=== PATIENT | female | born 1990 | race Hispanic/Latino ===

== ENCOUNTER 2017-10-12 00:17 | Emergency (ER) | payer BC ==
[2017-10-12] MEDS ORDERED: ONDANSETRON 4 MG/2 ML VIAL ONE (01:12)
[2017-10-12] MEDS ORDERED: NA CHLORIDE 0.9% 1,000 ML ONE (01:13)
[2017-10-12 01:23] LABS: Absolute Lymphocytes (CBC) 1.5 K/uL (0.7-4.9); Absolute Monocytes 0.8 K/uL (0.1-1.3); Absolute Neutrophil 9.2 K/uL (1.8-8.0); Basophils % 0.1 % (0-1.3); Eosinophils % 0.1 % (0-4.4); Hematocrit 37.2 % (36.0-45.0); Lymphocytes % 12.9 % (15.3-44.8); MCH 29.7 pg (27.0-35.0); MCV 89.1 fL (80-100); MPV 10.5 fL (7.6-11.3); Monocytes % 7.2 % (3.3-12.3); RBC Red Blood Cell Count 4.17 M/uL (3.86-4.86)
[2017-10-12 01:39] LABS: Bicarbonate 26 mEq/L (21-31); Glucose Level 127 mg/dL (65-120); Lipase 20 U/L (22-51); Potassium 3.4 mEq/L (3.6-5.0); Sodium Level 134 mEq/L (135-145)
[2017-10-12 01:45] LABS: ALT/SGPT 24 IU/L (10-60); AST/SGOT 23 IU/L (10-42); Albumin 3.9 g/dL (3.2-5.5); Alkaline Phosphatase 64 IU/L (42-121); BUN Blood Urea Nitrogen 12 mg/dL (6-20); Bilirubin Direct < 0.1 mg/dL (0-0.2); Bilirubin Total 0.5 mg/dL (0.3-1.2)
[2017-10-12 01:49] LABS: Urine Bacteria <20 /HPF (<20); Urine Culture Reflex Order NOT NEEDED; Urine Mucus HEAVY /HPF (NONE SEEN); Urine RBC <5 /HPF (NONE SEEN)
[2017-10-12 02:12] LABS: Urine Blood 1+ (NEG); Urine Glucose NEGATIVE (NEG); Urine Protein TRACE (NEG); Urine Specific Gravity 1.025 (1.005-1.030)
[2017-10-12] MEDS ORDERED: MEPERIDINE HCL 25 MG/0.5 ML ONE (02:51)
--- NOTE | 2017-10-12 03:58 | ER ---
Nurse's Notes [facility] Unit Name: Janay Marquez Age: 27 yrs Sex: Female : 1990 Arrival Date: 10/12/2017 Time: 00:19 Bed 17 Private MD: Bull Trinh S Diagnosis: Mild colitis of transverse colon Presentation: 10/12 00:50 Presenting complaint: Patient states: "I have having really bad stomach pains and jd3 vomiting for the past 3 days. It tends to happen more after I eat and drink something.". Transition of care: patient was not received from another setting of care. Onset of symptoms was October 08, 2017. Risk Assessment: Do you want to hurt yourself or someone else? Patient reports no desire to harm self or others. Initial Sepsis Screen: Does the patient meet any 2 criteria? No. Patient's initial sepsis screen is negative. Does the patient have a suspected source of infection? No. Patient's initial sepsis screen is negative. Care prior to arrival: None. 00:50 Method Of Arrival: Ambulatory j 00:50 Acuity: TANYA 3 jd3 Triage Assessment: 00:56 GI: Reports. 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 - Social history:: Smoking status: Patient/guardian denies using tobacco. - Ebola Screening: : No symptoms or risks identified at this time. - Family history:: not pertinent. - Hospitalizations: : No recent hospitalization is reported. Screenin:55 Abuse screen: Denies threats or abuse. Nutritional screening: No deficits noted. jd3 Tuberculosis screening: No symptoms or risk factors identified. Fall Risk Fall in past 12 months (25 points). Ambulatory Aid- None/Bed Rest/Nurse Assist (0 pts). Gait- Normal/Bed Rest/Wheelchair (0 pts) Mental Status- Oriented to own ability (0 pts). Total Sheldon Fall Scale indicates Low Risk Score (25-44 pts). Fall prevention measures have been instituted. Side Rails Up X 2 Placed close to Nursing Station Frequent Obs/Assesments occuring Family Present and informed to notify staff if they need to leave bedside. Assessment: 00:56 General: Appears in no apparent distress. uncomfortable, Behavior is calm, cooperative, jd3 appropriate for age. Pain: Complains of pain in epigastric area Pain currently is 5 out of 10 on a pain scale. Quality of pain is described as burning, sharp, Pain began 2-3 days ago. Aggravated by eating, drinking, Also complains of nausea. Neuro: Level of Consciousness is awake, alert, obeys commands, Oriented to person, place, time, situation. Cardiovascular: Heart tones S1 S2 present Capillary refill < 3 seconds Patient's skin is warm and dry. Respiratory: Airway is patent Respiratory effort is even, unlabored, Respiratory pattern is regular, symmetrical, Breath sounds are clear bilaterally. GI: Abdomen is round Bowel sounds present X 4 quads. Abd is soft and non tender X 4 quads. Reports diarrhea, nausea, vomiting. : No signs and/or symptoms were reported regarding the genitourinary system. EENT: No signs and/or symptoms were reported regarding the EENT system. Derm: Skin is intact, Skin is dry, Skin is normal, Skin temperature is warm. Musculoskeletal: Circulation, motion, and sensation intact. Range of motion: intact in all extremities. 01:42 Reassessment: Patient appears in no apparent distress at this time. Patient and/or jd3 family updated on plan of care and expected duration. Pain level reassessed. Patient is alert, oriented x 3, equal unlabored respirations, skin warm/dry/pink. awaiting results. 02:27 Reassessment: pt to CT with medical technicians. jd3 02:37 Reassessment: Patient appears in no apparent distress at this time. Patient and/or jd3 family updated on plan of care and expected duration. Pain level reassessed. Patient is alert, oriented x 3, equal unlabored respirations, skin warm/dry/pink. pt back from CT. 02:50 Reassessment: pt reporting pain sensation returning, provider notified, new orders jd3 received, see MAR. 03:39 Reassessment: Patient appears in no apparent distress at this time. Patient and/or jd3 family updated on plan of care and expected duration. Pain level reassessed. Patient is alert, oriented x 3, equal unlabored respirations, skin warm/dry/pink. pt resting in bed eyes closed, even and unlabored respirations, call light in reach, no distress noted at this time. family at bedside. 04:11 Reassessment: Patient appears in no apparent distress at this time. Patient and/or jd3 family updated on plan of care and expected duration. Pain level reassessed. Patient is alert, oriented x 3, equal unlabored respirations, skin warm/dry/pink. pt reported understanding of discharge instructions, even and steady gait upon discharge. Vital Signs: 00:54 BP 137 / 93; Pulse 95; Resp 16 S; Temp 98.3(O); Pulse Ox 100% on R/A; Weight 75.3 kg jd3 (R); Height 5 ft. 3 in. (160.02 cm) (R); Pain 5/10; 01:41 BP 126 / 79; Pulse 85; Resp 16 S; Pulse Ox 100% on R/A; jd3 02:36 BP 127 / 78; Pulse 80; Resp 16 S; Pulse Ox 100% on R/A; jd3 03:38 BP 127 / 82; Pulse 86; Resp 19 S; Pulse Ox 100% on R/A; jd3 00:54 Body Mass Index 29.41 (75.30 kg, 160.02 cm) jd3 ED Course: 00:19 Patient arrived in ED. as 00:20 Bull Trinh MD is Private Physician. as 00:37 Saad Luis MD is Attending Physician. rn 00:49 Edil Mccormick RN is Primary Nurse. jd3 00:51 Triage completed. jd3 00:56 Arm band placed on. jd3 00:56 Patient has correct armband on for positive identification. Placed in gown. Bed in low jd3 position. Call light in reach. Side rails up X2. Adult w/ patient. 02:25 CT completed. Patient moved to CT via wheelchair. Patient moved back from CT. cw1 02:33 CT Abd/Pelvis - W/Contrast: IV contrast only In Process Unspecified. EDMS 04:10 No provider procedures requiring assistance completed. IV discontinued, intact, jd3 bleeding controlled, No redness/swelling at site. Pressure dressing applied. Administered Medications: 01:18 Drug: NS 0.9% 1000 ml Route: IV; Rate: 1000 ml; Site: right antecubital; jd3 02:55 Follow up: Response: No adverse reaction; IV Status: Completed infusion; IV Intake: jd3 1000ml 01:23 Drug: Zofran 4 mg Route: IVP; Site: right antecubital; jd3 02:54 Follow up: Response: No adverse reaction; Nausea is decreased jd3 02:54 Drug: Demerol 25 mg Route: IVP; Site: right antecubital; jd3 04:04 Follow up: Response: No adverse reaction; Pain is decreased jd3 04:04 Drug: Cipro 500 mg Route: PO; jd3 04:12 Follow up: Response: Medication administered at discharge. jd3 04:04 Drug: Flagyl 500 mg Route: PO; jd3 04:11 Follow up: Response: Medication administered at discharge. jd3 Intake: 02:55 IV: 1000ml; Total: 1000ml. jd3 Outcome: 03:57 Discharge ordered by . rn 04:10 Discharged to home ambulatory, with family. jd3 04:10 Condition: stable 04:10 Discharge instructions given to patient, Instructed on discharge instructions, follow up and referral plans. medication usage, Demonstrated understanding of instructions, follow-up care, medications. 04:12 Patient left the ED. jd3 Signatures: Dispatcher [employer] Migdalia Alas Roman, MD MD rn Woodley, Hillary cw1 Edil Mccormick RN RN jd3
--- NOTE | 2017-10-12 03:59 | EDPHYS ---
Physician Documentation [facility] Name: Janay Marquez Age: 27 yrs Sex: Female : 1990 Arrival Date: 10/12/2017 Time: 00:19 Bed 17 Private MD: Bull Trinh S ED Physician Saad Luis HPI: 10/12 02:17 This 27 yrs old Female presents to ER via Ambulatory with complaints of rn Vomiting, Abdominal Pain. 02:17 The patient presents to the emergency department with nausea, vomiting, diarrhea, rn abdominal pain. Onset: The symptoms/episode began/occurred 3 day(s) ago. Possible causes: unknown. The symptoms are aggravated by pressure, food , The symptoms are alleviated by nothing. Associated signs and symptoms: Pertinent positives: abdominal pain, diarrhea, nausea, vomiting, Pertinent negatives: fever, GI bleeding. Severity of symptoms: At their worst the symptoms were moderate in the emergency department the symptoms are unchanged. The patient has not experienced similar symptoms in the past. The patient has not recently seen a physician. 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 - Social history:: Smoking status: Patient/guardian denies using tobacco. - Ebola Screening: : No symptoms or risks identified at this time. - Family history:: not pertinent. - Hospitalizations: : No recent hospitalization is reported. ROS: 02:17 Constitutional: Negative for fever, chills, and weight loss, Eyes: Negative for injury, rn pain, redness, and discharge, Neck: Negative for injury, pain, and swelling, Cardiovascular: Negative for chest pain, palpitations, and edema, Respiratory: Negative for shortness of breath, cough, wheezing, and pleuritic chest pain, Abdomen/GI: Negative for constipation MS/Extremity: Negative for injury and deformity, Skin: Negative for injury, rash, and discoloration, Neuro: Negative for headache, weakness, numbness, tingling, and seizure. Exam: 02:17 Constitutional: This is a well developed, well nourished patient who is awake, alert, rn and in no acute distress. Head/Face: Normocephalic, atraumatic. Eyes: Pupils equal round and reactive to light, extra-ocular motions intact. Lids and lashes normal. Conjunctiva and sclera are non-icteric and not injected. Cornea within normal limits. Periorbital areas with no swelling, redness, or edema. Cardiovascular: Regular rate and rhythm with a normal S1 and S2. No gallops, murmurs, or rubs. Normal PMI, no JVD. No pulse deficits. Respiratory: Lungs have equal breath sounds bilaterally, clear to auscultation and percussion. No rales, rhonchi or wheezes noted. No increased work of breathing, no retractions or nasal flaring. Abdomen/GI: soft, mild mid abd tenderness and epigastric tenderness, no rebound MS/ Extremity: Pulses equal, no cyanosis. Neurovascular intact. Full, normal range of motion. Equal circumference. Neuro: Awake and alert, GCS 15, oriented to person, place, time, and situation. Cranial nerves II-XII grossly intact. Motor strength 5/5 in all extremities. Sensory grossly intact. Vital Signs: 00:54 BP 137 / 93; Pulse 95; Resp 16 S; Temp 98.3(O); Pulse Ox 100% on R/A; Weight 75.3 kg jd3 (R); Height 5 ft. 3 in. (160.02 cm) (R); Pain 5/10; 01:41 BP 126 / 79; Pulse 85; Resp 16 S; Pulse Ox 100% on R/A; jd3 02:36 BP 127 / 78; Pulse 80; Resp 16 S; Pulse Ox 100% on R/A; jd3 03:38 BP 127 / 82; Pulse 86; Resp 19 S; Pulse Ox 100% on R/A; jd3 00:54 Body Mass Index 29.41 (75.30 kg, 160.02 cm) jd3 MDM: 00:37 Patient medically screened. rn 03:57 Differential diagnosis: Nonspecific abd pain, gastritis, cholecystitis, viral rn gastroenteritis, gastroenteritis. Data reviewed: vital signs, nurses notes, lab test result(s), radiologic studies, CT scan, and as a result, I will discharge patient. Counseling: I had a detailed discussion with the patient and/or guardian regarding: the historical points, exam findings, and any diagnostic results supporting the discharge/admit diagnosis, lab results, radiology results, the need for outpatient follow up, to return to the emergency department if symptoms worsen or persist or if there are any questions or concerns that arise at home. Response to treatment: the patient's symptoms have markedly improved after treatment, and as a result, I will discharge patient. Special discussion: I discussed with the patient/guardian in detail that at this point there is no indication for admission to the hospital. It is understood, however, that if the symptoms persist or worsen the patient needs to return immediately for re-evaluation. 10/12 00:44 Order name: Basic Metabolic Panel; Complete Time: 02:48 rn 10/12 00:44 Order name: CBC with Diff; Complete Time: 01:34 rn 10/12 00:44 Order name: Creatinine for Radiology; Complete Time: :48 rn 10/12 00:44 Order name: Hepatic Function; Complete Time: : rn 10/12 00:44 Order name: Lipase; Complete Time: 02:48 rn 10/12 00:44 Order name: Urine Microscopic Only; Complete Time: 02:48 rn 10/12 01:35 Order name: CT Abd/Pelvis - W/Contrast: IV contrast only rn 10/12 01:46 Order name: Urine Dipstick--Ancillary (enter results); Complete Time: 02:48 eb 10/12 01:46 Order name: Urine --Ancillary (enter results); Complete Time: 02:48 eb 10/12 00:44 Order name: Urine Test (obtain specimen); Complete Time: 01:23 rn 10/12 00:44 Order name: IV Saline Lock; Complete Time: : rn 10/12 00:44 Order name: Labs collected and sent; Complete Time: : rn 10/12 00:44 Order name: Urine Dipstick-Ancillary (obtain specimen); Complete Time: 01:24 rn Administered Medications: 01:18 Drug: NS 0.9% 1000 ml Route: IV; Rate: 1000 ml; Site: right antecubital; jd3 02:55 Follow up: Response: No adverse reaction; IV Status: Completed infusion; IV Intake: jd3 1000ml 01:23 Drug: Zofran 4 mg Route: IVP; Site: right antecubital; jd3 02:54 Follow up: Response: No adverse reaction; Nausea is decreased jd3 02:54 Drug: Demerol 25 mg Route: IVP; Site: right antecubital; jd3 04:04 Follow up: Response: No adverse reaction; Pain is decreased jd3 04:04 Drug: Cipro 500 mg Route: PO; jd3 04:12 Follow up: Response: Medication administered at discharge. jd3 04:04 Drug: Flagyl 500 mg Route: PO; jd3 04:11 Follow up: Response: Medication administered at discharge. jd3 Disposition: 10/12/17 03:57 Discharged to Home. Impression: Mild colitis of transverse colon. - Condition is Stable. - Discharge Instructions: Abdominal Pain, Adult, Nausea and Vomiting, Abdominal Pain, Women. - Prescriptions for Zofran ODT 4 mg Oral tablet,disintegrating - place 1 tablet by TRANSLINGUAL route every 8 hours As needed; 20 tablet. Cipro 500 mg Oral Tablet - take 1 tablet by ORAL route every 12 hours for 10 days; 20 tablet. Flagyl 500 mg Oral Tablet - take 1 tablet by ORAL route every 8 hours for 10 days; 30 tablet. - Medication Reconciliation Form, Thank You Letter, Antibiotic Education, Prescription Opioid Use form. - Follow up: Private Physician; When: As needed; Reason: Recheck today's complaints, Re-evaluation by your physician. - Problem is new. - Symptoms have improved. Signatures: Dispatcher [employer] EDMS Saad Luis MD MD rn Davies, Jonathon, RN RN jd3 Corrections: (The following items were deleted from the chart) 04:12 03:57 10/12/2017 03:57 Discharged to Home. Impression: Mild colitis of transverse jd3 colon. Condition is Stable. Forms are Medication Reconciliation Form, Thank You Letter, Antibiotic Education, Prescription Opioid Use. Follow up: Private Physician; When: As needed; Reason: Recheck today's complaints, Re-evaluation by your physician. Problem is new. Symptoms have improved. rn
[2017-10-12] MEDS ORDERED: metroNIDAZOLE 500 MG TABLET ONE (04:00)
[2017-10-12] MEDS ORDERED: CIPROFLOXACIN HCL 500 MG TAB ONE (04:01)
[2017-10-12 04:17] VITALS: TEMP 98.3; O2SAT 100
[2017-10-12 04:20] VITALS: BP 127/82
--- NOTE | 2017-10-12 08:01 | RAD REPORT ---
EXAM DESCRIPTION: CT - Abdomen Pelvis W Contrast - 10/12/2017 6:15 am CLINICAL HISTORY: Abdominal pain history pain for 3 days COMPARISON: none. TECHNIQUE: Computed axial tomography of the abdomen pelvis was obtained. 100 cc Isovue-300 was admin istered intravenously. Oral contrast was not requested which limits evaluation of bowel. A preliminary report was generated by [employer] and reviewed prior to this dictation All CT scans are performed using dose optimization technique as appropriate and may include automated exposure control or mA/KV adjustment according to patient size. FINDINGS: A 23 millimeter enhancing lesion is present within segment VII of the liver. Spleen, pancreas, adrenal and kidneys appear unremarkable. There is no evidence of diverticulitis. The appendix is normal. A 3.5 centimeter left ovarian cyst is noted. An irregularly shaped right ovarian follicle measures 17 millimeters and likely has recently ruptured. Small amount of free fluid is present within the pelvi s The preliminary report described mild transverse wall thickening. Most likely this is not significant IMPRESSION: A 3.5 centimeter left ovarian cyst is noted. An irregularly shaped right ovarian follicl e measures 17 millimeters and likely has recently ruptured. Small amount of free fluid is present wit hin the pelvis 23 millimeter enhancing lesion within segment VII of the liver. A nonemergent MRI with contrast is re commended for further evaluation
== END 2017-10-12 04:12 | disposition home or self-care (01) ==
LOC: ER 00:17
DX: K52.89 Other specified noninfective gastroenteritis and colitis (principal); F90.9 Attention-deficit hyperactivity disorder, unspecified type
CPT/HCPCS: 36415; 74177; 80048; 80076; 81003; 81015; 81025; 83690; 85025; 96361; 96374; 96375; 99284; J2175; J2405; J7030; Q9967